=== PATIENT | male | born 1990 | race Two or more races ===

== ENCOUNTER 2016-10-11 16:07 | Observation (INO) | payer OTHER ==
[~2016-10-11] VITALS: Ht 167.6 cm; Wt 62.1 kg
--- NOTE | ~2016-10-11 | OR ---
PATIENT'S NAME: PAOLO HIGUERA [facility] AGE: 26 Y [address] ROOM: [address] [address] [place] [facility] [place]: 10[place]11/2016 OR/Procedure Report DISCHARGE DATE: FAMILY PHYSICIAN: PHYSICIAN, NO ATTENDING PHYSICIAN: Ryan Hatfield SURGEON: Ryan Hatfield MD/ROXIE PUNCH OUT CREW MEMBER: DATE OF PROCEDURE: 10/11/2016 PREOPERATIVE DIAGNOSIS: Comminuted open fracture of the anterior mandible and subcondylar fracture. POSTOPERATIVE DIAGNOSIS: Comminuted open fracture of the anterior mandible and subcondylar fracture. PROCEDURES: Open reduction and internal fixation of mandibular fracture, and closed reduction of subcondylar fracture. BLOOD LOSS: Minimal. OPERATIVE PROCEDURE: After adequate IV induction and nasotracheal intubation, the patient was prepped and draped in the usual manner for an intraoral procedure. Anthony arch bars were placed on the upper and lower dentition. This was extremely difficult because of missing teeth and partially avulsed teeth. We replaced the upper right first and second bicuspids and cuspid into anatomic position. Tooth #8 maxillary anterior right central incisor had no bony support, we removed this tooth. After that, we turned our attention to the lower arch. The patient had a comminuted fracture of the lower central incisor. It was removed along with some attached bone, which had no periosteal attachment or support. We placed Anthony arch bars in the lower arch and then placed the patient in what I think was proper occlusion. We attempted to match wear facets and intercuspation. The patient was held in this position with 26-gauge stainless steel wire, engaging the Anthony arch bars which had been placed on the upper and lower arches using 24-gauge stainless steel wire circumdentally. We then made an incision in the vestibule of the anterior mandible exposed the anterior mandibular fracture. This appeared to be fairly well reduced. We placed plates across the fracture for further stabilization and we utilized 2.0 mini plates. We also closed the significant laceration of the intraoral portion of the right lower lip utilizing 3-0 chromic. We then irrigated copiously the anterior mandible, closed the incision utilizing running interlocking 3-0 chromic suture in layers. The patient was taken to recovery room in stable condition. PATIENT'S NAME: PAOLO HIGUERA [facility] AGE: 26 Y [address] ROOM: [address] [address] [place] [facility] [place]: 10/11/2016 OR/Procedure Report DISCHARGE DATE: FAMILY PHYSICIAN: PHYSICIANZEESHAN ATTENDING PHYSICIAN: Ryan Hatfield RYAN HATFIELD MD/ROXIE POLANCO/carmen /[id number] d: t: 10/12/16 193, OPERATIVE SUMMARY
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
[2016-10-11] MEDS ORDERED: AUGMENTIN250 MG/5 M PO (16:47)
[2016-10-11] MEDS ORDERED: LORTAB ELIXI15 ML/UD PO (16:48)
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
--- NOTE | 2016-10-12 04:54 | NUR ---
Significant Event: Pt A&Ox3. VS stable, remains on RA. Pain adequately controlled with PRN morphine and advil. Pt tolerating clear liquids well. Can advance diet to full liquids. Zofran is PRN, but recommend giving scheduled to help with secretions. Pt uses yanker. Rt side of face remains swollen. Pt able to drink and eat jell-o with no problems. PIV in RFA. Will SL once bag is done. Upon arrival, pt was elevated BP's and HR; has since decreased. Follow up: Wire cutters @ bedside. Pt in observation. Continue plan of care.
[2016-10-12] MEDS ORDERED: PERIDEX15 ML PO (09:55)
[2016-10-12] MEDS ORDERED: MOTRIN800 MG PO (09:56)
--- NOTE | 2016-10-12 11:30 | NUR ---
D: ORDERS RECEIVED FOR THE PATIENT TO BE DISCHARGED TO HOME TODAY. I: DISMISSAL INSTRUCTIONS WERE PREPARED BY THE VIRTUAL NURSE AND REVIEWED AT BEDSIDE WITH THE PATIENT BY THE PRIMARY NURSE AND HER TISSUE INSERTER. THE FOLLOWING INFORMATION WAS PREPARED INCLUDING [employer]ES TEACHING SHEETS PROVIDED: FACIAL FRACTURE, UNDERSTANDING ORTHOGNATHIC ANATOMY AND PROBLEMS, PREVENTING DVT, PERIDEX RINSE, AMOXICILLIN, AND MOTRIN. REVIEWED THAT THE PATIENT NEEDS TO GO STRAIGHT TO DR. HATFIELD'S OFFICE AFTER DISCHARGE FROM THE HOSPITAL THIS AFTERNOON. R: THE PRIMARY NURSE REVIEWED DISCHARGE INSTRUCTIONS. P: THE ABOVE INFORMATION WAS SHARED WITH THE PRIMARY NURSE AND THE CHARGE NURSE THAT THE PATIENT DISMISSAL EDUCATION PAPERWORK WAS COMPLETED AFTER REVIEWED PATIENT IS READY FOR DISHCARGE WHEN HIS RIDE IS AVAILABLE TO PICK HIM UP.
--- NOTE | 2016-10-12 18:49 | NUR ---
D: CHARTING AND DOCUMENTATION COMPLETED BY CHI MCKAY REVIEWED. I AGREE WITH CARE AND CHARTING
== END 2016-10-12 13:35 | disposition disaster alternative care site (69) ==
LOC: GMSU 16:07 → GSDC 16:07 → GMSU 22:31 → GSDC 22:32 → GMSU 22:32
PROVIDERS: ADMIT Surgery
PROC: 0NST04Z Reposition Right Mandible with Internal Fixation Device, Open Approach (ICD-10-PCS; principal; 2016-10-11)
DX: S02.621 Fracture of subcondylar process of right mandible (principal); V29.9XXA Motorcycle rider (driver) (passenger) injured in unspecified traffic accident, initial encounter
CPT/HCPCS: C1713; G0378; J1100; J1200; J2001; J2270; J2405; J7030